=== PATIENT | female | born 1990 | race Caucasian/White ===

== ENCOUNTER → 2017-07-02 | Outpatient (CLI) | payer OTHER | LOC: M RAD 11:53 | DX: O36.4XX1 Maternal care for intrauterine death, fetus 1 (principal) | CPT/HCPCS: 76811 ==

== ENCOUNTER → 2018-09-19 | Outpatient (REF) | payer MEDICAID ==
[~2018-09-19] MED LIST: IBUP80TA PO; IRON325T3 PO; MAPA500T17 PO; PRENTAB9 PO
[2018-09-19 17:15] LABS: HEMATOCRIT 32.5 % (36.0-47.0); MEAN CORPUSCULAR HEMOGLOBIN 26.5 pg (27.0-33.0); MEAN CORPUSCULAR HGB CONC 33.8 g/dl (32.0-36.5); MEAN CORPUSCULAR VOLUME 78.3 fl (80.0-96.0); PLATELET COUNT, AUTOMATED 233 10^3/uL (150-450); RED BLOOD COUNT 4.15 10^6/uL (4.00-5.40); WHITE BLOOD COUNT 7.4 10^3/uL (4.0-10.0)
[2018-09-19 21:57] LABS: HCG, SERUM QUANTITATIVE 110156 MIU/ML
[2018-09-20 10:07] LABS: RUBELLA IgG QUALITATIVE IMMUNE (IMMUNE)
[2018-09-20 10:35] LABS: HEPATITIS C VIRUS ABY INDEX 0.1 INDEX (<0.8)
[2018-09-20 10:36] LABS: HIV 1&2 SCREEN CENTAUR NEGATIVE (NEGATIVE)
== END ==
LOC: M LAB REF 16:19
PROVIDERS: ATTEND Nurse Practitioner Women's Health
DX: Z34.81 Encounter for supervision of other normal pregnancy, first trimester (principal)

== ENCOUNTER → 2019-01-27 | Outpatient (CLI) | payer OTHER ==
[2019-01-27 13:05] LABS: HEMATOCRIT 25.6 % (36.0-47.0); HEMOGLOBIN 8.1 g/dl (12.0-15.5); MEAN CORPUSCULAR HEMOGLOBIN 22.7 pg (27.0-33.0); MEAN CORPUSCULAR HGB CONC 31.6 g/dl (32.0-36.5); MEAN CORPUSCULAR VOLUME 71.7 fl (80.0-96.0); PLATELET COUNT, AUTOMATED 195 10^3/uL (150-450); RED BLOOD COUNT 3.57 10^6/uL (4.00-5.40); WHITE BLOOD COUNT 8.3 10^3/uL (4.0-10.0)
== END ==
LOC: M LAB 11:07
PROVIDERS: ATTEND Nurse Practitioner Women's Health
DX: Z34.82 Encounter for supervision of other normal pregnancy, second trimester (principal); Z36.89 Encounter for other specified antenatal screening

== ENCOUNTER → 2019-03-20 | Outpatient (REF) | payer OTHER | LOC: M LAB REF 13:17 | PROVIDERS: ATTEND Obstetrics & Gynecology | DX: Z34.83 Encounter for supervision of other normal pregnancy, third trimester (principal); Z36.85 Encounter for antenatal screening for Streptococcus B ==

== ENCOUNTER 2019-04-17 09:23 | Inpatient (IN) | payer OTHER ==
[2019-04-17] VITALS (43 sets, daily range): BP systolic 86–122; BP diastolic 51–78
[~2019-04-17] VITALS: Ht 157.5 cm; Wt 83.8 kg
[2019-04-17] MEDS ORDERED: LR 1,000 ML IV SCH (09:45)
[2019-04-17 10:38] LABS: HEMATOCRIT 28.2 % (36.0-47.0); HEMOGLOBIN 8.8 g/dl (12.0-15.5); MEAN CORPUSCULAR HEMOGLOBIN 21.8 pg (27.0-33.0); MEAN CORPUSCULAR HGB CONC 31.2 g/dl (32.0-36.5); PLATELET COUNT, AUTOMATED 170 10^3/uL (150-450); RED BLOOD COUNT 4.03 10^6/uL (4.00-5.40); WHITE BLOOD COUNT 7.6 10^3/uL (4.0-10.0)
[2019-04-17] MEDS ORDERED: LR 1,000 ML IV ONE (10:45)
[2019-04-17] MEDS ORDERED: FENTANYL 2MCG/ML ROPIVACAINE 0.2% IN 0.9% NACL 100ML IVBAG As Ordered ONE (12:05)
[2019-04-17] MEDS ORDERED: OXYTOCIN 30 UNITS IN 0.9% NaCl 500ML IV BAG (J2590) As Ordered ONE (13:07)
[2019-04-17] MEDS ORDERED: ONDANSETRON 4MG/2ML VIAL (J2405) IV PRN (13:15)
[2019-04-17] MEDS ORDERED: NALOXONE INJ 0.4 MG/1 ML VIAL (J2310) IV PRN (13:15)
[2019-04-17] MEDS ORDERED: OXYTOCIN DRIP 30 UNITS in IV 1 EA IV SCH ×2 (13:15→14:52)
[2019-04-17] MEDS ORDERED: LACTATED RINGER'S 1000 ML IV PRN (13:15)
[2019-04-17] MEDS ORDERED: EPIDURAL COMMENT XX SCH (13:15)
[2019-04-17] MEDS ORDERED: EPIDURAL/PCA KEYS XX PRN (13:15)
[2019-04-17] MEDS ORDERED: diphenhydrAMINE INJ 50MG/ML VIAL (J1200) IV PRN (13:15)
[2019-04-17] MEDS ORDERED: FENTANYL/ROPIVACAINE/NACL BAG 100 ML EPIDURAL SCH (13:15)
[2019-04-17] MEDS ORDERED: REFRIGERATOR IV KEYS XX PRN (13:15)
[2019-04-17] MEDS ORDERED: ePHEDrine SULFATE 25 MG/5 ML(5MG/ML) SYRINGE IV PRN (13:15)
--- NOTE | 2019-04-17 14:11 | HPE ---
DATE OF ADMISSION: 04/17/2019 Margarita is a 28-year-old female 5, para 2-1-1-2 with an EDC of 04/17/2019, EGA 40 weeks gestation, who presented to the office with complaint of contractions. Upon evaluation, she was found to be 5-6 cm dilated, 80% effaced with a bulging membrane. At this point, a decision was made to admit the patient. Her record was reviewed, which was essentially unremarkable. Her first ultrasound was at 11 weeks' 0 days. LABORATORIES: Blood type is O+, rubella immune, hepatitis negative, HIV negative, GC and chlamydia negative, 1-hour sugar testing was within normal limits. Her GBS is negative. PAST MEDICAL HISTORY: Significant for anemia. PAST SURGICAL HISTORY: Denies. SOCIAL HISTORY: She denies any alcohol, drug or cigarette smoking. REVIEW OF SYSTEMS: Unremarkable MEDICATIONS: vitamin. ALLERGIES: No known drug allergies. PHYSICAL EXAMINATION HEENT: Grossly within normal limits. Abdomen: Soft, nontender, nondistended. Extremities: No clubbing, cyanosis or edema. Vaginal exam 5-6 cm dilated, 80% effaced, fetus at -3 station, vertex position with bulging membrane. Tracing reviewed category 1 tracing. ASSESSMENT: 1. Intrauterine at 40 weeks gestation, in labor. 2. GBS negative. PLAN: Admit to labor and delivery. Routine labs sent. Pain management discussed. The patient opted for an epidural. We will continue to monitor. Anticipate delivery. MTDD
[2019-04-17 14:50] LABS: CORD GAS ABE V -4.2; CORD GAS HCO3 V 20.9 MEQ/L; CORD GAS O2 SAT V 77.3 %; CORD GAS PCO2 V 38.5 mmHg; CORD GAS PH V 7.352 UNITS; CORD GAS SBC V 20.5 MEQ/L; CORD GAS TCO2 V 22.1 MEQ/L
[2019-04-17 14:52] LABS: CORD GAS ABE A -4.7; CORD GAS HCO3 A 23.2 MEQ/L; CORD GAS O2 SAT A 25.8 %; CORD GAS PCO2 A 54.9 mmHg; CORD GAS PH A 7.244 UNITS; CORD GAS PO2 A 16.9 mmHg; CORD GAS SBC A 19.1 MEQ/L; CORD GAS TCO2 A 24.9 MEQ/L
[2019-04-17] MEDS ORDERED: DIBUCAINE 1% OINTMENT 30GM TOP PRN (15:00)
[2019-04-17] MEDS ORDERED: ANUSOL HC CREAM 30GM TOP PRN (15:00)
[2019-04-17] MEDS ORDERED: ACETAMINOPHEN TAB 650MG DOSE (2X325MG) PO PRN (15:00)
[2019-04-17] MEDS ORDERED: METHYLERGONOVINE MALEATE 0.2 MG TAB PO PRN (15:00)
[2019-04-17] MEDS ORDERED: RHOGAM 300 MCG (1500 IU) INJ (J2790) IM SCH (15:00)
[2019-04-17] MEDS ORDERED: IBUPROFEN 600 MG TAB PO PRN (15:00)
[2019-04-17] MEDS ORDERED: MEASLES,MUMPS,RUBELLA VACCINE INJ (MMR-II) (90707) SC SCH (15:00)
--- NOTE | 2019-04-17 18:18 | DN ---
DATE: 04/17/2019 Margarita is a 28-year-old female 5, para 2-1-1-2 who was admitted at 40 weeks gestation in active labor. She progressed to fully dilated, delivered a live male infant in right occiput anterior position over an intact perineum with a nuchal cord times one. scores 8 and 9. weight 8 pounds, 14 ounces. Placenta delivered spontaneously intact, three-vessel cord. Perineum, vagina, and cervix inspected. No laceration noted. Estimated blood loss 300 mL. Both mother and baby in stable condition.
[2019-04-17] MEDS: IBUPROFEN 800 MG TAB PO PRN (19:47)
[2019-04-17] MEDS ORDERED: DOCUSATE SODIUM 100 MG CAP PO PRN (21:00)
[2019-04-18] MEDS: ACETAMINOPHEN 500 MG TAB PO PRN ×2 (02:28→20:27)
[2019-04-18 06:00] VITALS: BP 107/57
--- NOTE | 2019-04-18 07:58 | IPNPDOC ---
Progress Note Date of Service: Apr 18, 2019 Day#: 1 Progress Note S: Doing well w/o complaints. O: vss, AF gen: well appearing abd: soft, nttp ext: neg calf tenderness A/P: PPD#1 s/p , recovering in stable condition -routine care -d/c tomorrow Norma Serrano MD VS, I&O, 24H, Fishbone Vital Signs/I&O Vital Signs Date Time Temp Pulse Resp B/P (MAP) Pulse Ox O2 Delivery O2 Flow Rate FiO2 04/18/19 06:00 97.2 85 18 107/57 (74) I&O- Last 24 Hours up to 6 AM 04/18/19 06:00 Output Total 950 ml Balance -950 ml Laboratory Data 24H LABS Laboratory Tests 2 04/17/19 09:50: Serology Scanned Report Hepatitis B Testing 04/17/19 10:21: Nucleated Red Blood Cells % (auto) 0.0 04/17/19 14:43: Cord Arterial Blood pH 7.244, Cord Arterial Blood PCO2 54.9, Cord Arterial Blood PO2 16.9, Cord Arterial Blood HCO3 23.2, Cord Arterial Blood Total CO2 24.9, Cord Arterial Blood Base Excess -4.7, Cord Arterial Base Excess (Standard 19.1, Cord Arterial Bld Oxygen Saturation 25.8, Cord Venous Blood pH 7.352, Cord Venous Blood PCO2 38.5, Cord Venous Blood PO2 35.0, Cord Venous Blood HCO3 20.9, Cord Venous Blood Total CO2 22.1, Cord Venous Base Excess (Actual) -4.2, Cord Venous Base Excess (Standard) 20.5, Cord Venous Blood Oxygen Saturation 77.3 CBC/BMP Laboratory Tests 04/17/19 10:21 NORMA SERRANO MD. Apr 18, 2019 07:58
[2019-04-18] MEDS: IBUPROFEN 800 MG TAB PO PRN (08:05)
[2019-04-18] MEDS ORDERED: INFLUENZA QUADRIVALENT PF VACCINE 0.5ML SYRINGE (90686) IM ONE (09:00)
[2019-04-18] MEDS ORDERED: ADACEL/BOOSTRIX VACCINE (DIPHTH/PERTUSS/ACELL/TETANUS)0.5ML SYR (90715) IM ONE (09:00)
[2019-04-18] MEDS: PRENATAL VITAMINS CHEWABLE TABLET PO SCH (09:04)
[2019-04-18 18:27] VITALS: BP 114/65
[2019-04-19] MEDS: IBUPROFEN 800 MG TAB PO PRN (03:17)
[2019-04-19 06:00] VITALS: BP 104/52
[2019-04-19] MEDS ORDERED: DOCU100C16 PO (07:53)
[2019-04-19] MEDS ORDERED: ACET-683 PO (07:53)
[2019-04-19] MEDS ORDERED: IBUP-1022 PO (07:53)
[2019-04-19] MEDS ORDERED: MOM 30ML SUSPENSION UDC PO ONE (08:00)
[2019-04-19] MEDS: PRENATAL VITAMINS CHEWABLE TABLET PO SCH (08:59)
[2019-04-19] MEDS ORDERED: ADACEL/BOOSTRIX VACCINE (DIPHTH/PERTUSS/ACELL/TETANUS)0.5ML SYR (90715) IM ONE (09:00)
[2019-04-19] MEDS ORDERED: INFLUENZA QUADRIVALENT PF VACCINE 0.5ML SYRINGE (90686) IM ONE ×2 (09:00)
== END 2019-04-19 14:30 | disposition home or self-care (01) | DRG 560 ==
LOC: M LDI 09:23 → M OBS 16:49
PROVIDERS: ADMIT Obstetrics & Gynecology; ATTEND Obstetrics & Gynecology
PROC: 10E0XZZ Delivery of Products of Conception, External Approach (ICD-10-PCS; principal; 2019-04-17)
DX: O99.02 Anemia complicating childbirth (principal); Z3A.40 40 weeks gestation of pregnancy; Z37.0 Single live birth; D64.9 Anemia, unspecified; O69.81X0 Labor and delivery complicated by cord around neck, without compression, not applicable or unspecified